=== PATIENT | male | born 1980 | race Caucasian/White ===

== ENCOUNTER 2022-03-28 09:03 | Emergency (ER) | payer OTHER ==
[2022-03-28 09:20] VITALS: BP 127/54; PULSE 68; RESP 18; TEMP 98.9; BMI 30.1
[2022-03-28 11:07] LABS: BASO % 0.7 % (0-2.0); EOS % 4.1 % (0-4.5); HEMATOCRIT 27.9 % (35.4-49); HEMOGLOBIN 9.2 GM/dL (11.7-16.9); LYMPH % 18.6 % (8-40); MCH 33.7 pg (25.7-33.7); MCHC 32.9 g/dl (32.0-35.9); MEAN CELL VOLUME 102.3 fl (80-96); MEAN PLT VOLUME 8.1 fl (7.5-11.1); NEUT % 63.6 % (42.8-82.8); PLATELET COUNT 245 10^3/uL (134-434); RBC 2.73 M/mm3 (4.00-5.60); RDW 15.8 % (11.9-15.9); WHITE BLOOD COUNT 7.1 K/mm3 (4.0-10.0)
[2022-03-28 11:10] LABS: INR 3.57 (0.83-1.09); PROTHROMBIN TIME (PATIENT) 41.6 SEC (9.7-13.0)
[2022-03-28 11:13] LABS: ACTIVATED PTT 53.2 SECONDS (25.2-36.5)
[2022-03-28 11:27] LABS: ALBUMIN 3.3 g/dl (3.4-5.0); CALCIUM 9.1 mg/dL (8.5-10.1)
[2022-03-28 11:28] LABS: BLOOD UREA NITROGEN 33.9 mg/dL (7-18); MAGNESIUM 1.9 mg/dL (1.8-2.4)
[2022-03-28 11:30] LABS: PHOSPHOROUS 4.4 mg/dL (2.5-4.9)
[2022-03-28 11:31] LABS: CREATININE 5.7 mg/dL (0.55-1.3)
[2022-03-28 11:32] LABS: BILIRUBIN,TOTAL 0.4 mg/dL (0.2-1); TOT PROT 7.2 g/dl (6.4-8.2)
== END 2022-03-28 13:15 ==
LOC: JER 09:03
DX: N18.6 End stage renal disease (principal); Z99.2 Dependence on renal dialysis
CPT/HCPCS: 36415; 80053; 83735; 84100; 85025; 85610; 85730; 86850; 86870; 86900; 86901; 86902; 93005; 93010; 99284-25